=== PATIENT | male | born 1945 | race Caucasian/White ===

== ENCOUNTER 2017-01-20 22:06 | Inpatient (IN) | payer MEDICARE ==
[~2017-01-20] VITALS: Ht 177.8 cm; Wt 85.6 kg
[~2017-01-20 22:06] MED LIST: ACET-1757 PO; ATOR20TA9 PO; CEFD300C37 PO; CEPH-376 PO; DIPH1TAB PO; ENAL20TA PO; ERGO80004 PO; LACT1CAP24 PO; LEVO0.5P; LEVO100T PO; LEVO300T4 PO; LEVO500T47 PO; LIOT10VI PO; LOPE2TAB59 PO; METF10002 PO; OMEP-110 PO; SERT50TA5 PO
[2017-01-20 22:54] LABS: HEMATOCRIT 38.1 % (39.2-51.8); HEMOGLOBIN 12.8 g/dL (13.7-18.0); WHITE BLOOD COUNT 17.2 x10^3/uL (3.4-10)
[2017-01-20] MEDS ORDERED: ANTIDEPRESSANT (22:55)
[2017-01-20] MEDS ORDERED: ONDANSETRON 2MG/ML, 2ML ONE (22:57)
[2017-01-20] MEDS ORDERED: SODIUM CHLORIDE FLUSH 10ML SYR IVF ONE (23:00)
[2017-01-20] MEDS ORDERED: SODIUM CHLORIDE 0.9% 1,000ML IVBOLUS ONE (23:00)
[2017-01-20] MEDS ORDERED: ONDANSETRON 2MG/ML, 2ML IVPush ONE (23:00)
[2017-01-20 23:06] LABS: ASPARTATE AMINO TRANSFERASE 34 U/L (15-37); BLOOD UREA NITROGEN 80 mg/dL (7-18)
[2017-01-20] MEDS ORDERED: SODIUM CHLORIDE 0.9% 1,000 ML IV ONE (23:52)
[2017-01-21] MEDS ORDERED: SODIUM CHLORIDE FLUSH 10ML SYR IVF PRN
[2017-01-21] MEDS ORDERED: ENOXAPARIN 40 MG/0.4 ML SQ SCH (00:30)
[2017-01-21] MEDS ORDERED: ONDANSETRON 2MG/ML, 2ML IVPush PRN (00:30)
[2017-01-21] MEDS ORDERED: HYDROcodone/APAP 5/325 TABLET PO PRN (00:30)
[2017-01-21] MEDS ORDERED: morphine SULFATE 10 MG/ML, 1ML IVPush PRN (00:30)
[2017-01-21] MEDS ORDERED: DOCUSATE 100 MG CAPSULE PO PRN (00:30)
[2017-01-21 02:15] VITALS: BP 128/79
[2017-01-21] MEDS: SODIUM CHLORIDE 0.9% 1,000 ML IV SCH ×2 (02:38→10:14)
[2017-01-21] MEDS: HEPARIN 5,000 UNITS/ML, 1ML SQ SCH ×3 (02:38→19:06)
[2017-01-21] MEDS: ACETAMINOPHEN 325 MG TABLET PO PRN ×4 (03:05→21:13)
[2017-01-21] MEDS: LEVOTHYROXINE 100 MCG TABLET PO SCH (06:26)
[2017-01-21] MEDS: INSULIN ASPART 100 UNITS/ML, PEN SQ-INSULIN SCH ×4 (07:00→21:00)
[2017-01-21 07:51] VITALS: BP 124/63
[2017-01-21 09:59] LABS: BLOOD UREA NITROGEN 73 mg/dL (7-18)
[2017-01-21 13:13] LABS: HEMATOCRIT 34.8 % (39.2-51.8); HEMOGLOBIN 11.6 g/dL (13.7-18.0); WHITE BLOOD COUNT 17.3 x10^3/uL (3.4-10)
[2017-01-21 13:22] VITALS: BP 122/66
[2017-01-21] MEDS: CEFTRIAXONE PMX 1GM/50ML 50 ML IV SCH (16:27)
[2017-01-21 19:59] VITALS: BP 116/48
[2017-01-21] MEDS: ATORVASTATIN 20 MG TABLET PO SCH (21:12)
[2017-01-22 01:11] VITALS: BP 143/78
[2017-01-22] MEDS: ACETAMINOPHEN 325 MG TABLET PO PRN ×2 (01:15→14:34)
[2017-01-22] MEDS: HEPARIN 5,000 UNITS/ML, 1ML SQ SCH ×3 (03:52→19:43)
[2017-01-22 05:38] LABS: HEMATOCRIT 32.1 % (39.2-51.8); WHITE BLOOD COUNT 18.3 x10^3/uL (3.4-10)
[2017-01-22 06:10] LABS: ASPARTATE AMINO TRANSFERASE 24 U/L (15-37); BLOOD UREA NITROGEN 64 mg/dL (7-18)
[2017-01-22] MEDS: LEVOTHYROXINE 100 MCG TABLET PO SCH (06:14)
[2017-01-22] MEDS: INSULIN ASPART 100 UNITS/ML, PEN SQ-INSULIN SCH ×4 (06:17→21:00)
[2017-01-22 07:45] VITALS: BP 126/68
[2017-01-22] MEDS ORDERED: MAGNESIUM SULFATE PMX 2GM/50ML 50 ML IV ONE (11:30)
[2017-01-22] MEDS: SODIUM CHLORIDE 0.9% 1,000 ML IV SCH ×2 (12:05→21:30)
[2017-01-22 15:22] VITALS: BP 115/64
[2017-01-22] MEDS: CEFTRIAXONE PMX 1GM/50ML 50 ML IV SCH (15:53)
[2017-01-22 19:27] VITALS: BP 124/71
[2017-01-22] MEDS: ATORVASTATIN 20 MG TABLET PO SCH (19:43)
[2017-01-23 01:46] VITALS: BP 126/65
[2017-01-23] MEDS: HEPARIN 5,000 UNITS/ML, 1ML SQ SCH ×3 (04:14→21:30)
[2017-01-23 05:02] LABS: HEMATOCRIT 33.3 % (39.2-51.8); HEMOGLOBIN 11.3 g/dL (13.7-18.0); WHITE BLOOD COUNT 16.8 x10^3/uL (3.4-10)
[2017-01-23 05:10] LABS: BLOOD UREA NITROGEN 61 mg/dL (7-18)
[2017-01-23] MEDS: LEVOTHYROXINE 100 MCG TABLET PO SCH (06:08)
[2017-01-23] MEDS: INSULIN ASPART 100 UNITS/ML, PEN SQ-INSULIN SCH ×4 (06:11→21:00)
[2017-01-23 08:18] VITALS: BP 111/69
[2017-01-23] MEDS: SODIUM CHLORIDE 0.9% 1,000 ML IV SCH ×2 (08:59→16:08)
[2017-01-23] MEDS: CEFTRIAXONE PMX 1GM/50ML 50 ML IV SCH (16:01)
[2017-01-23 16:03] VITALS: BP 115/70
[2017-01-23 19:51] VITALS: BP 117/68
[2017-01-23] MEDS: BUPROPION 100 MG TABLET PO SCH (21:25)
[2017-01-23] MEDS: ATORVASTATIN 20 MG TABLET PO SCH (21:25)
[2017-01-24 02:00] VITALS: BP 113/64
[2017-01-24] MEDS: HEPARIN 5,000 UNITS/ML, 1ML SQ SCH ×3 (04:12→21:16)
[2017-01-24] MEDS: LEVOTHYROXINE 100 MCG TABLET PO SCH (04:12)
[2017-01-24] MEDS: SODIUM CHLORIDE 0.9% 1,000 ML IV SCH ×2 (04:13→14:23)
[2017-01-24 06:03] LABS: HEMATOCRIT 32.4 % (39.2-51.8); WHITE BLOOD COUNT 12.5 x10^3/uL (3.4-10)
[2017-01-24 06:06] LABS: BLOOD UREA NITROGEN 73 mg/dL (7-18)
[2017-01-24 06:34] VITALS: BP 115/73
[2017-01-24] MEDS: BUPROPION 100 MG TABLET PO SCH ×2 (08:05→21:15)
[2017-01-24] MEDS: INSULIN ASPART 100 UNITS/ML, PEN SQ-INSULIN SCH ×4 (08:06→21:00)
[2017-01-24 14:55] VITALS: BP 116/70
[2017-01-24] MEDS: CEFTRIAXONE PMX 1GM/50ML 50 ML IV SCH (16:28)
[2017-01-24] MEDS: ATORVASTATIN 20 MG TABLET PO SCH ×2 (21:00→21:15)
[2017-01-24] MEDS ORDERED: PSYLLIUM PACKET PO SCH (21:00)
[2017-01-24 21:15] VITALS: BP 114/70
[2017-01-25] MEDS: SODIUM CHLORIDE 0.9% 1,000 ML IV SCH ×3 (01:16→20:21)
[2017-01-25 01:17] VITALS: BP 103/61
[2017-01-25 04:46] LABS: HEMATOCRIT 31.3 % (39.2-51.8); HEMOGLOBIN 10.6 g/dL (13.7-18.0)
[2017-01-25 04:51] LABS: BLOOD UREA NITROGEN 71 mg/dL (7-18)
[2017-01-25] MEDS: HEPARIN 5,000 UNITS/ML, 1ML SQ SCH ×3 (06:25→20:22)
[2017-01-25] MEDS: LEVOTHYROXINE 100 MCG TABLET PO SCH (06:26)
[2017-01-25] MEDS: INSULIN ASPART 100 UNITS/ML, PEN SQ-INSULIN SCH ×4 (07:00→20:22)
[2017-01-25 07:30] VITALS: BP 113/60
[2017-01-25] MEDS ORDERED: POTASSIUM CHLORIDE 20 MEQ TAB.ER.PRT PO ONE (08:30)
[2017-01-25] MEDS ORDERED: PSYLLIUM PACKET PO SCH (09:00)
[2017-01-25] MEDS: BUPROPION 100 MG TABLET PO SCH ×2 (10:10→20:21)
[2017-01-25 15:31] VITALS: BP 132/65
[2017-01-25] MEDS: CEFTRIAXONE PMX 1GM/50ML 50 ML IV SCH (15:56)
[2017-01-25] MEDS ORDERED: HYDROcodone/APAP 5/325 TABLET PO PRN (19:30)
[2017-01-25] MEDS ORDERED: DOCUSATE 100 MG CAPSULE PO PRN (19:30)
[2017-01-25] MEDS ORDERED: ONDANSETRON 2MG/ML, 2ML IVPush PRN (19:30)
[2017-01-25] MEDS: PSYLLIUM PACKET PO SCH (20:20)
[2017-01-25] MEDS: ATORVASTATIN 20 MG TABLET PO SCH ×2 (20:20→20:26)
[2017-01-25 20:27] VITALS: BP 132/57
[2017-01-26 04:13] VITALS: BP 124/65
[2017-01-26] MEDS: LEVOTHYROXINE 100 MCG TABLET PO SCH (04:53)
[2017-01-26] MEDS: HEPARIN 5,000 UNITS/ML, 1ML SQ SCH ×3 (04:53→21:22)
[2017-01-26 06:23] LABS: HEMATOCRIT 30.7 % (39.2-51.8); HEMOGLOBIN 10.3 g/dL (13.7-18.0); WHITE BLOOD COUNT 10.4 x10^3/uL (3.4-10)
[2017-01-26 06:43] LABS: BLOOD UREA NITROGEN 53 mg/dL (7-18)
[2017-01-26] MEDS: INSULIN ASPART 100 UNITS/ML, PEN SQ-INSULIN SCH ×4 (07:00→21:00)
[2017-01-26] MEDS: SODIUM CHLORIDE 0.9% 1,000 ML IV SCH ×2 (08:33→17:28)
[2017-01-26 09:47] VITALS: BP 125/66
[2017-01-26 10:42] VITALS: BP 142/76
[2017-01-26] MEDS: PSYLLIUM PACKET PO SCH ×3 (10:47→21:00)
[2017-01-26] MEDS: BUPROPION 100 MG TABLET PO SCH ×2 (10:47→21:00)
[2017-01-26 11:50] LABS: IS PT STATUS REG ER OR PRE ER? NO
[2017-01-26 15:22] VITALS: BP 145/73
[2017-01-26] MEDS: CEFTRIAXONE PMX 1GM/50ML 50 ML IV SCH (17:28)
[2017-01-26 17:35] LABS: IS PT STATUS REG ER OR PRE ER? NO
[2017-01-26 19:35] VITALS: BP 151/68
[2017-01-26] MEDS: ATORVASTATIN 20 MG TABLET PO SCH (21:00)
[2017-01-27 01:40] VITALS: BP 122/63
[2017-01-27] MEDS: SODIUM CHLORIDE 0.9% 1,000 ML IV SCH ×2 (02:30→12:30)
[2017-01-27] MEDS: LEVOTHYROXINE 100 MCG TABLET PO SCH (05:59)
[2017-01-27] MEDS: HEPARIN 5,000 UNITS/ML, 1ML SQ SCH ×2 (06:00→12:45)
[2017-01-27] MEDS: INSULIN ASPART 100 UNITS/ML, PEN SQ-INSULIN SCH ×2 (06:04→11:00)
[2017-01-27] MEDS: BUPROPION 100 MG TABLET PO SCH (09:14)
[2017-01-27] MEDS: PSYLLIUM PACKET PO SCH (09:14)
[2017-01-27 09:36] VITALS: BP 136/69
[2017-01-27] MEDS: CEFTRIAXONE PMX 1GM/50ML 50 ML IV SCH (14:31)
[2017-01-27 14:32] VITALS: BP 123/66
== END 2017-01-27 15:30 | disposition home or self-care (01) | DRG 871 ==
LOC: ED 22:30 → EDIP 23:52 → SUATTDRO 01-21 00:01 → 4NOR 01-21 02:10
PROVIDERS: ADMIT Family Medicine; ATTEND Family Medicine
PROC: 0T9B70Z Drainage of Bladder with Drainage Device, Via Natural or Artificial Opening (ICD-10-PCS; principal; 2017-01-21)
DX: A41.9 Sepsis, unspecified organism (principal); K85.90 Acute pancreatitis without necrosis or infection, unspecified; N17.0 Acute kidney failure with tubular necrosis; K91.2 Postsurgical malabsorption, not elsewhere classified; E87.1 Hypo-osmolality and hyponatremia; N39.0 Urinary tract infection, site not specified; N13.30 Unspecified hydronephrosis; E11.22 Type 2 diabetes mellitus with diabetic chronic kidney disease; D63.1 Anemia in chronic kidney disease; E03.9 Hypothyroidism, unspecified; E86.0 Dehydration; I12.9 Hypertensive chronic kidney disease with stage 1 through stage 4 chronic kidney disease, or unspecified chronic kidney disease; K57.30 Diverticulosis of large intestine without perforation or abscess without bleeding; K80.20 Calculus of gallbladder without cholecystitis without obstruction; N18.9 Chronic kidney disease, unspecified; Z80.9 Family history of malignant neoplasm, unspecified; Z85.51 Personal history of malignant neoplasm of bladder; Z90.49 Acquired absence of other specified parts of digestive tract; Z91.19 Patient's noncompliance with other medical treatment and regimen; Z93.3 Colostomy status; Z85.46 Personal history of malignant neoplasm of prostate
CPT/HCPCS: 36415; 71010; 74176; 80048; 80053; 80061; 81001; 82550; 82962; 83605; 83690; 83735; 83930; 83935; 84100; 84300; 84439; 84443; 84484; 85025; 87040; 87077; 87086; 87186; 93005; 93306; 96361; 96374; J0696; J1644; J1815; J2405; J3475; J7030

== ENCOUNTER 2017-09-11 20:03 | Inpatient (IN) | payer MEDICARE, OTHER ==
[~2017-09-11] VITALS: Ht 177.8 cm; Wt 87.4 kg
[~2017-09-11 20:03] MED LIST changes: +ALLO100T30 PO; +ANTIDEPRESSANT; +BUPR100T11 PO; +CHOL200021 PO; +LEVO200T5 PO; +MECO10002 SL
[2017-09-11] MEDS ORDERED: SODIUM CHLORIDE 0.9% 1,000ML IVBOLUS ONE (20:30)
[2017-09-11 20:59] LABS: BASOPHILS # (AUTO) 0.07 x10^3/uL (0-0.1); BASOPHILS % (AUTO) 1 % (0-1); EOSINOPHILS # (AUTO) 0.18 x10^3/uL (0-0.4); EOSINOPHILS % (AUTO) 1 % (1-7); LYMPHOCYTES # (AUTO) 2.68 x10^3/uL (1-3.4); LYMPHOCYTES % (AUTO) 21 % (22-44); MD NO; MEAN CORPUSCULAR HEMOGLOBIN 31.3 pg (27.5-34.5); MEAN CORPUSCULAR HGB CONC 33.8 g/dL (33.2-36.2); MEAN CORPUSCULAR VOLUME 92.5 fL (81-97); MEAN PLATELET VOLUME 8.9 fL (7.4-10.4); MONOCYTES # (AUTO) 0.68 x10^3/uL (0.2-0.8); MONOCYTES % (AUTO) 5 % (2-9); NEUTROPHILS # (AUTO) 9.13 x10^3/uL (1.8-6.8); NEUTROPHILS % (AUTO) 72 % (42-75); PLATELET COUNT 367 x10^3/uL (130-400); RED BLOOD COUNT 2.66 x10^6/uL (4.38-5.82); RED CELL DISTRIBUTION WIDTH 14.5 % (9.4-14.8)
[2017-09-11 21:02] LABS: ALANINE AMINOTRANSFERASE 26 U/L (12-78); ALBUMIN 3.2 g/dL (3.4-5.0); ANION GAP 11 mmol/L (5-15); CALCIUM 8.9 mg/dL (8.5-10.1); CHLORIDE 94 mmol/L (98-107); CREATININE 4.52 mg/dL (0.7-1.3)
[2017-09-11 21:04] LABS: ALKALINE PHOSPHATASE 306 U/L (45-117); BILIRUBIN,TOTAL 0.6 mg/dL (0.2-1.0); TOTAL PROTEIN 7.7 g/dL (6.4-8.2)
[2017-09-11 21:25] LABS: ACETONE, SERUM Negative (Negative)
[2017-09-11 22:23] LABS: INTERNATIONAL NORMALIZED RATIO 1.08 (0.93-1.1); PROTHROMBIN TIME 11.1 Seconds (9.6-11.5)
[2017-09-11 22:28] LABS: MICROSCOPIC INDICATED
[2017-09-11 22:29] LABS: CULTURE INDICATED? YES
[2017-09-11] MEDS ORDERED: morphine SULFATE 10 MG/ML, 1ML IVPush PRN (23:30)
[2017-09-11] MEDS ORDERED: ACETAMINOPHEN 325 MG TABLET PO PRN (23:30)
[2017-09-11] MEDS ORDERED: ONDANSETRON 2MG/ML, 2ML IVPush PRN (23:30)
[2017-09-11 23:33] VITALS: BP 108/54
[2017-09-11 23:49] LABS: OCCULT BLOOD POSITIVE (NEGATIVE)
[2017-09-12] VITALS (18 sets, daily range): BP systolic 77–114; BP diastolic 41–76
[2017-09-12] MEDS: BUPROPION 100 MG TABLET PO SCH ×3 (00:24→19:53)
[2017-09-12] MEDS: FAMOTIDINE 20 MG TABLET PO SCH ×2 (00:24→09:02)
[2017-09-12] MEDS: SULFAMETH./TRIMETHOPRIM 10 ML in DEXTROSE 5% 250 ML IV SCH ×2 (00:24→13:01)
[2017-09-12] MEDS: SODIUM CHLORIDE 0.9% 1,000 ML IV SCH ×3 (00:24→23:22)
[2017-09-12] MEDS: CEFTRIAXONE PMX 1GM/50ML 50 ML IV SCH (02:04)
[2017-09-12 03:26] LABS: ANION GAP 12 mmol/L (5-15); CALCIUM 8.2 mg/dL (8.5-10.1); CHLORIDE 98 mmol/L (98-107)
[2017-09-12 03:51] LABS: MEAN CORPUSCULAR HEMOGLOBIN 31.6 pg (27.5-34.5); MEAN CORPUSCULAR HGB CONC 33.6 g/dL (33.2-36.2); MEAN CORPUSCULAR VOLUME 94.1 fL (81-97); MEAN PLATELET VOLUME 8.8 fL (7.4-10.4); PLATELET COUNT 309 x10^3/uL (130-400); RED BLOOD COUNT 2.22 x10^6/uL (4.38-5.82)
[2017-09-12 04:18] LABS: BASOPHILS # (AUTO) 0.06 x10^3/uL (0-0.1); BASOPHILS % (AUTO) 1 % (0-1); EOSINOPHILS # (AUTO) 0.26 x10^3/uL (0-0.4); EOSINOPHILS % (AUTO) 2 % (1-7); LYMPHOCYTES # (AUTO) 2.97 x10^3/uL (1-3.4); LYMPHOCYTES % (AUTO) 25 % (22-44); MD SCAN; MONOCYTES # (AUTO) 0.77 x10^3/uL (0.2-0.8); MONOCYTES % (AUTO) 7 % (2-9); NEUTROPHILS # (AUTO) 7.81 x10^3/uL (1.8-6.8); NEUTROPHILS % (AUTO) 66 % (42-75)
[2017-09-12] MEDS: LEVOTHYROXINE 100 MCG TABLET PO SCH (05:06)
[2017-09-12] MEDS: INSULIN LISPRO 100 UNITS/ML, PEN SQ-INSULIN SCH ×4 (07:00→19:28)
[2017-09-12] MEDS: ALLOPURINOL 100 MG TABLET PO SCH (09:02)
[2017-09-12] MEDS ORDERED: MAGNESIUM SULFATE PMX 4GM/100M 100 ML IV ONE (11:30)
[2017-09-12 13:41] LABS: ANION GAP 8 mmol/L (5-15); CALCIUM 8.3 mg/dL (8.5-10.1); CHLORIDE 99 mmol/L (98-107)
[2017-09-12] MEDS ORDERED: DEXTROSE 4 GM TAB.CHEW PO PRN (15:30)
[2017-09-12] MEDS ORDERED: DEXTROSE 50%, 50ML SYRINGE IVPush PRN (15:30)
[2017-09-12] MEDS ORDERED: GLUCAGON 1 MG IM PRN (15:30)
[2017-09-12 18:11] LABS: BASOPHILS # (AUTO) 0.04 x10^3/uL (0-0.1); BASOPHILS % (AUTO) 0 % (0-1); EOSINOPHILS # (AUTO) 0.17 x10^3/uL (0-0.4); EOSINOPHILS % (AUTO) 2 % (1-7); LYMPHOCYTES # (AUTO) 1.99 x10^3/uL (1-3.4); LYMPHOCYTES % (AUTO) 21 % (22-44); MD NO; MEAN CORPUSCULAR HEMOGLOBIN 31.3 pg (27.5-34.5); MEAN CORPUSCULAR HGB CONC 34.4 g/dL (33.2-36.2); MEAN CORPUSCULAR VOLUME 91.1 fL (81-97); MEAN PLATELET VOLUME 9.4 fL (7.4-10.4); MONOCYTES % (AUTO) 6 % (2-9); NEUTROPHILS # (AUTO) 6.72 x10^3/uL (1.8-6.8); NEUTROPHILS % (AUTO) 71 % (42-75); PLATELET COUNT 292 x10^3/uL (130-400); RED BLOOD COUNT 2.68 x10^6/uL (4.38-5.82); RED CELL DISTRIBUTION WIDTH 15.5 % (9.4-14.8)
[2017-09-12 18:35] LABS: SODIUM,URINE RANDOM 14 mmol/L
[2017-09-12 19:01] LABS: OSMOLALITY,URINE 367 mOsm/kg (500-850)
[2017-09-12] MEDS: SODIUM CHLORIDE FLUSH 10ML SYR IVF SCH (19:53)
[2017-09-12] MEDS ORDERED: PANTOPRAZOLE 40 MG IV IVPush SCH (21:00)
[2017-09-13] VITALS (7 sets, daily range): BP systolic 103–126; BP diastolic 40–65
[2017-09-13] MEDS: SULFAMETH./TRIMETHOPRIM 10 ML in DEXTROSE 5% 250 ML IV SCH (01:53)
[2017-09-13] MEDS: CEFTRIAXONE PMX 1GM/50ML 50 ML IV SCH (02:59)
[2017-09-13 04:52] LABS: MEAN CORPUSCULAR HEMOGLOBIN 31.4 pg (27.5-34.5); MEAN CORPUSCULAR HGB CONC 34.7 g/dL (33.2-36.2); MEAN CORPUSCULAR VOLUME 90.6 fL (81-97); MEAN PLATELET VOLUME 8.5 fL (7.4-10.4); PLATELET COUNT 267 x10^3/uL (130-400); RED BLOOD COUNT 2.39 x10^6/uL (4.38-5.82); RED CELL DISTRIBUTION WIDTH 16.1 % (9.4-14.8)
[2017-09-13 04:59] LABS: ALBUMIN 2.7 g/dL (3.4-5.0); ANION GAP 9 mmol/L (5-15); CHLORIDE 103 mmol/L (98-107); CREATININE 3.59 mg/dL (0.7-1.3)
[2017-09-13 05:40] LABS: BASOPHILS # (AUTO) 0.04 x10^3/uL (0-0.1); BASOPHILS % (AUTO) 1 % (0-1); EOSINOPHILS % (AUTO) 4 % (1-7); LYMPHOCYTES # (AUTO) 1.66 x10^3/uL (1-3.4); LYMPHOCYTES % (AUTO) 23 % (22-44); MD SCAN; MONOCYTES # (AUTO) 0.52 x10^3/uL (0.2-0.8); MONOCYTES % (AUTO) 7 % (2-9); NEUTROPHILS % (AUTO) 66 % (42-75)
[2017-09-13] MEDS: LEVOTHYROXINE 100 MCG TABLET PO SCH (06:00)
[2017-09-13] MEDS: INSULIN LISPRO 100 UNITS/ML, PEN SQ-INSULIN SCH ×4 (07:00→22:09)
[2017-09-13] MEDS: SODIUM CHLORIDE 0.9% 1,000 ML IV SCH ×3 (07:30→23:30)
[2017-09-13] MEDS ORDERED: MIDAZOLAM 1 MG/ML, 5ML ONE (07:56)
[2017-09-13] MEDS ORDERED: FENTANYL PF 100 MCG/2ML ONE (07:56)
[2017-09-13] MEDS ORDERED: FAMOTIDINE 20 MG TABLET PO SCH (09:00)
[2017-09-13] MEDS: SODIUM CHLORIDE FLUSH 10ML SYR IVF SCH ×2 (09:00→22:09)
[2017-09-13] MEDS: BUPROPION 100 MG TABLET PO SCH ×2 (09:00→22:08)
[2017-09-13] MEDS: ALLOPURINOL 100 MG TABLET PO SCH (09:18)
[2017-09-13] MEDS: OMEPRAZOLE 20 MG CAPSULE.DR PO SCH ×2 (09:18→17:14)
[2017-09-14] VITALS (7 sets, daily range): BP systolic 113–137; BP diastolic 50–65
[2017-09-14 04:39] LABS: ALBUMIN 2.6 g/dL (3.4-5.0); ANION GAP 7 mmol/L (5-15); CALCIUM 7.8 mg/dL (8.5-10.1); CHLORIDE 112 mmol/L (98-107); CREATININE 2.86 mg/dL (0.7-1.3)
[2017-09-14 04:42] LABS: MEAN CORPUSCULAR HEMOGLOBIN 30.8 pg (27.5-34.5); MEAN CORPUSCULAR HGB CONC 33.3 g/dL (33.2-36.2); MEAN CORPUSCULAR VOLUME 92.5 fL (81-97); PLATELET COUNT 256 x10^3/uL (130-400); RED BLOOD COUNT 2.44 x10^6/uL (4.38-5.82); RED CELL DISTRIBUTION WIDTH 16.2 % (9.4-14.8)
[2017-09-14] MEDS: LEVOTHYROXINE 100 MCG TABLET PO SCH (05:21)
[2017-09-14] MEDS: CEFTRIAXONE PMX 1GM/50ML 50 ML IV SCH (05:21)
[2017-09-14] MEDS: SODIUM CHLORIDE 0.9% 1,000 ML IV SCH (05:24)
[2017-09-14 05:45] LABS: BASOPHILS # (AUTO) 0.05 x10^3/uL (0-0.1); BASOPHILS % (AUTO) 1 % (0-1); EOSINOPHILS % (AUTO) 5 % (1-7); LYMPHOCYTES # (AUTO) 1.85 x10^3/uL (1-3.4); LYMPHOCYTES % (AUTO) 22 % (22-44); MD SCAN; MONOCYTES # (AUTO) 0.63 x10^3/uL (0.2-0.8); MONOCYTES % (AUTO) 8 % (2-9); NEUTROPHILS % (AUTO) 65 % (42-75)
[2017-09-14] MEDS: INSULIN LISPRO 100 UNITS/ML, PEN SQ-INSULIN SCH ×4 (07:21→21:05)
[2017-09-14] MEDS: OMEPRAZOLE 20 MG CAPSULE.DR PO SCH ×2 (08:51→17:13)
[2017-09-14] MEDS: ALLOPURINOL 100 MG TABLET PO SCH (08:51)
[2017-09-14] MEDS: BUPROPION 100 MG TABLET PO SCH ×2 (08:51→21:05)
[2017-09-14] MEDS: SODIUM CHLORIDE FLUSH 10ML SYR IVF SCH ×2 (08:56→20:58)
[2017-09-15 00:28] VITALS: BP 134/57
[2017-09-15 04:55] LABS: BASOPHILS # (AUTO) 0.03 x10^3/uL (0-0.1); BASOPHILS % (AUTO) 0 % (0-1); EOSINOPHILS # (AUTO) 0.45 x10^3/uL (0-0.4); EOSINOPHILS % (AUTO) 5 % (1-7); LYMPHOCYTES % (AUTO) 26 % (22-44); MD NO; MEAN CORPUSCULAR HEMOGLOBIN 31.2 pg (27.5-34.5); MEAN CORPUSCULAR VOLUME 91.9 fL (81-97); MONOCYTES # (AUTO) 0.72 x10^3/uL (0.2-0.8); MONOCYTES % (AUTO) 9 % (2-9); NEUTROPHILS # (AUTO) 5.09 x10^3/uL (1.8-6.8); NEUTROPHILS % (AUTO) 60 % (42-75); PLATELET COUNT 283 x10^3/uL (130-400); RED BLOOD COUNT 2.58 x10^6/uL (4.38-5.82); RED CELL DISTRIBUTION WIDTH 15.2 % (9.4-14.8)
[2017-09-15 05:07] LABS: CHLORIDE 110 mmol/L (98-107)
[2017-09-15 05:11] LABS: ALBUMIN 2.6 g/dL (3.4-5.0); ANION GAP 8 mmol/L (5-15); CALCIUM 8.7 mg/dL (8.5-10.1); CREATININE 2.87 mg/dL (0.7-1.3)
[2017-09-15] MEDS: CEFTRIAXONE PMX 1GM/50ML 50 ML IV SCH (06:12)
[2017-09-15] MEDS: LEVOTHYROXINE 100 MCG TABLET PO SCH (06:12)
[2017-09-15] MEDS: INSULIN LISPRO 100 UNITS/ML, PEN SQ-INSULIN SCH (06:54)
[2017-09-15] MEDS: OMEPRAZOLE 20 MG CAPSULE.DR PO SCH (07:40)
[2017-09-15] MEDS: ALLOPURINOL 100 MG TABLET PO SCH (07:40)
[2017-09-15] MEDS: SODIUM CHLORIDE FLUSH 10ML SYR IVF SCH (07:40)
[2017-09-15] MEDS: BUPROPION 100 MG TABLET PO SCH (07:40)
[2017-09-15 08:25] VITALS: BP 124/61
[2017-09-15] MEDS ORDERED: AMOX-291 PO (08:27)
[2017-09-15] MEDS ORDERED: OMEP-110 PO (08:27)
== END 2017-09-15 10:30 | disposition home or self-care (01) | DRG 377 ==
LOC: ED 22:09 → EDIP 22:25 → 3NW 23:17
PROVIDERS: ADMIT Family Medicine; ATTEND Family Medicine
PROC: 30233N1 Transfusion of Nonautologous Red Blood Cells into Peripheral Vein, Percutaneous Approach (ICD-10-PCS; 2017-09-12)
PROC: 0DB68ZX Excision of Stomach, Via Natural or Artificial Opening Endoscopic, Diagnostic (ICD-10-PCS; principal; 2017-09-13 08:00)
DX: K25.4 Chronic or unspecified gastric ulcer with hemorrhage (principal); N17.0 Acute kidney failure with tubular necrosis; E44.0 Moderate protein-calorie malnutrition; E11.22 Type 2 diabetes mellitus with diabetic chronic kidney disease; C67.9 Malignant neoplasm of bladder, unspecified; E86.0 Dehydration; E87.1 Hypo-osmolality and hyponatremia; N39.0 Urinary tract infection, site not specified; N18.4 Chronic kidney disease, stage 4 (severe); E83.42 Hypomagnesemia; G47.33 Obstructive sleep apnea (adult) (pediatric); Z85.46 Personal history of malignant neoplasm of prostate; I12.9 Hypertensive chronic kidney disease with stage 1 through stage 4 chronic kidney disease, or unspecified chronic kidney disease; D50.0 Iron deficiency anemia secondary to blood loss (chronic); R31.29 Other microscopic hematuria; Z80.9 Family history of malignant neoplasm, unspecified; Z87.440 Personal history of urinary (tract) infections; Z93.6 Other artificial openings of urinary tract status; Z68.27 Body mass index [BMI] 27.0-27.9, adult
CPT/HCPCS: 36415; 36430; 71045; 80048; 80053; 81001; 82010; 82040; 82272; 82570; 82962; 83690; 83735; 83930; 83935; 84100; 84300; 85025; 85610; 85730; 86850; 86900; 86923; 87040; 87077; 87086; 87186; 88305; 88342; 93005; 99152; 99153; J0696; J2250; J2405; J3010; J7060; C9113; G0461; J3475; J7030; P9016